=== PATIENT | male | born 1995 | race Caucasian/White ===

== ENCOUNTER 2020-10-22 23:23 | Emergency (ER) | payer OTHER ==
[~2020-10-22] VITALS: Ht 172.7 cm; Wt 100.0 kg
[2020-10-22 23:26] VITALS: BP 124/78
[2020-10-23] MEDS ORDERED: IBUPROFEN 600MG TABLET PO STA (00:01)
== END 2020-10-23 03:02 | disposition home or self-care (01) ==
LOC: ER 23:41
DX: S89.82XA Other specified injuries of left lower leg, initial encounter (principal); W22.8XXA Striking against or struck by other objects, initial encounter; Y93.89 Activity, other specified; Y92.89 Other specified places as the place of occurrence of the external cause; Y99.8 Other external cause status
CPT/HCPCS: 72100; 73590; 99283